=== PATIENT | female | born 2005 ===

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

== ENCOUNTER 2023-11-21 07:07 | Inpatient (IN) | payer MEDICAID ==
[~2023-11-21] VITALS: Ht 160 cm; Wt 72.3 kg
[2023-11-21] VITALS (14 sets, daily range): BP systolic 90–120; BP diastolic 40–75; PULSE 78–116; TEMP 98–98.3
[2023-11-21] MEDS ORDERED: LR & Oxytocin 500 ML IV SCH (08:45)
[2023-11-21] MEDS ORDERED: LR 1,000 ML IV SCH (08:45)
[2023-11-21 09:00] LABS: BASO % 0.3 % (0.0-2.0); EOS % 0.3 % (0.0-4.0); GRAN # 8.8 K/mm3 (1.4-6.5); GRAN % 75.3 % (42.2-75.2); HEMOGLOBIN 11.6 g/dl (12.0-15.0); LYMPH % 17.2 % (20.0-51.0); MEAN CELL VOLUME 86 fl (80.0-95.0); MEAN CORPUSCULAR HEMOGLOBIN 28 pg (26-32); MEAN CORPUSCULAR HGB CONC 33 g/dl (33.0-37.0); MEAN PLATELET VOLUME 12.3 fl (7.4-10.4); MONO # 0.8 K/mm3 (0.1-0.6); MONO % 6.4 % (1.7-9.3); PLATELET COUNT 233 K/mm3 (130-400); RED BLOOD COUNT 4.14 M/mm3 (4.10-5.30); REDCELL DISTRIBUTION WIDTH-CV 13.9 % (11.5-14.5)
[2023-11-21 09:01] LABS: HEMATOCRIT 35.6 % (35.0-45.0)
[2023-11-21] MEDS ORDERED: Naloxone 0.4 MG/ML VIAL IV PRN (12:00)
[2023-11-21] MEDS ORDERED: Magnes Hydrox (MOM) 80 MG/ML 30 ML CUP PO PRN (12:00)
[2023-11-21] MEDS ORDERED: Witch Hazel 50% Pads Bulk TUB TP PRN (12:00)
[2023-11-21] MEDS ORDERED: oxyCODONE 5 MG TAB PO PRN (12:00)
[2023-11-21] MEDS ORDERED: Mag/Al Hydrox/Simeth Susp 30 ML CUP PO PRN (12:00)
[2023-11-21] MEDS ORDERED: Loratadine 10 MG TAB PO PRN (12:00)
[2023-11-21] MEDS ORDERED: Phenylephrine/Mineral Oil/Petrolatum 57 GM TUBE RC PRN (12:00)
[2023-11-21] MEDS ORDERED: Ibuprofen 600 MG TAB PO SCH (12:00)
[2023-11-21] MEDS ORDERED: Acetaminophen 500 MG TAB PO SCH (12:00)
[2023-11-21] MEDS ORDERED: Measles/Mumps/Rubella Virus Vaccine Live w Diluent 0.5 ML VIAL SQ SCH (12:00)
[2023-11-21] MEDS ORDERED: Sennosides/Docusate 8.6-50 MG TAB PO SCH (17:00)
[2023-11-21] MEDS ORDERED: traZODone 50 MG TAB PO PRN (21:00)
[2023-11-22 00:10] VITALS: BP 105/58; PULSE 74; TEMP 98
[2023-11-22 05:15] VITALS: BP 102/52; PULSE 78; TEMP 98.1
[2023-11-22 08:15] VITALS: BP 109/62; PULSE 76; TEMP 97.8
--- NOTE | 2023-11-22 09:09 | NUR ---
Initial visit; Mother resting as was her mother. Patient did thank [employer] for offering congratulations and Blessings for the of her son. [employer] thanked patient for choosing our hospital.
--- NOTE | 2023-11-22 11:48 | NUR ---
steam trap worker recieved a consult regarding mother not connecting with concerns. SW spoke with RN Erma who reports patient speaks Ma[place], but states she can understand some Indonesian. RN informs SW she has declined to use the 3rd pressman with all staff and got frustrated when it was used. RN states pt has been in the [place] since age 15-16 and [facility]. RN reports pt has declined holding and feeding infant and overnight showed no interest. RN informed SW pt plans to bottle feed and breast feed, but it appears her elder family females rely it is important for pt to breast feed. SW met with pt and her mother in the room. SW introduced herself and asked if she would like to use the [employer] 3rd pressman. Pt inquired about what question's SW would ask as she states she understands some Indonesian. SW briefly stated some topics of discussion. Pt nodded her head for SW to continue without the 3rd pressman when asked if it was fine to continue or not. Pt reports she lives with her family and 12 individuals in a large house in [place]. She confirms her phone number and insurance on the chart. She states she has no other children of her own. Pt states her mother drives her to appointments and such. Pt said "not yet" when asked if she was working or going to work. She states the infant will stay at home with her. SW asked about resources in the are and she states "my uncle." SW inquired more about what she meant and she just said they live in the home. Pt states she gets both WIC and food stamps. SW provided additional information about informing them of the . SW asked about a carseat and pt looked to her mom and discussed it in their [place] language; then informed SW that it is in the car. Pt states she has a crib and some diapers/wipes. Pt inquired about getting a swing. SW provided that it is her preference, she could wait and see what baby likes such as, swinging, rocking, etc. Pt reports she has no concerns and her family is a good support. SW inquired about FOB and pt reports he is in [place]. SW inquired about if he is involved and got to see the baby. Pt states she showed him and did not provide nuch follow up. She states that they are all good supports. Pt reports no concerns with mental health or substance use. SW noted baby cry quietly and pt did not respond to infant, she continued to talk with SW and chew bubblegum. Pt's mother jolted up and gazed at . SW asked pt if she is bonding with baby such as wanting to hold, cuddle, or love on him. Pt just nodded her head 'yes' and provide discussion. SW inquired if she was having feelings of depression such as saddness, feeling down, or anything negative. Pt reports she is not. She continued to say she was bonding okay with baby when asked. Pt did not provide much insight or conversation with SW. She states she will be seen at [facility] and baby at [facility]. Pt reports she will bottle feed and breast feed, but she did verbalized concerns regarding her milk coming in. SW advised Consultants can come in, and also discuss getting a breast pump, which she reports to not have. Pt was informed it can take a little bit for her milk to come in and the nurse will assist her when needed. Pt nodded her head. SW informed SCOTTIE Ritchie of pt needing consult. She accepted this and will note any further needs or concerns.
[2023-11-22 16:30] VITALS: BP 108/47; PULSE 84
[2023-11-22 19:30] VITALS: BP 97/44; PULSE 80; TEMP 98.1
[2023-11-23] MEDS ORDERED: IBU600 MG PO (08:25)
[2023-11-23 09:30] VITALS: BP 104/48; PULSE 90
== END 2023-11-23 11:30 | disposition home or self-care (01) | DRG 807 ==
LOC: LDRO 07:07 → LDR 08:44 → OB 15:00
PROVIDERS: Obstetrics & Gynecology; ADMIT Obstetrics & Gynecology
PROC: 10E0XZZ Delivery of Products of Conception, External Approach (ICD-10-PCS; principal; 2023-11-21)
PROC: 0KQM0ZZ Repair Perineum Muscle, Open Approach (ICD-10-PCS; 2023-11-21)
DX: O48.0 Post-term pregnancy (principal); Z37.0 Single live birth; O70.1 Second degree perineal laceration during delivery; Z3A.40 40 weeks gestation of pregnancy
CPT/HCPCS: J0595; J2590; J7120